=== PATIENT | female | born 1975 | race Caucasian/White ===

== ENCOUNTER 2024-02-01 17:53 | Emergency (ER) | payer OTHER, SELFPAY ==
[2024-02-01 17:59] VITALS: BP 173/101; PULSE 82; TEMP 37; O2SAT 96; BMI 28.8
[2024-02-01] MEDS: TETRACAINE HCL 0.5% OP SOL 80 DROP/4 ML BOTTLE OP (18:28)
[2024-02-01] MEDS: FLUORESCEIN SODIUM 1 MG STRIP OP (18:28)
[2024-02-01 18:42] VITALS: BP 148/96; PULSE 88; O2SAT 99
--- NOTE | 2024-02-01 18:48 | ED.GENADUL1 ---
HPI HPI - General Adult General Chief complaint: Eye Problems Stated complaint: Eye Redness/Pain Time Seen by Provider: 02/01/24 18:13 Source: patient Mode of arrival: walk-in Limitations: no limitations History of Present Illness HPI narrative: 49-year-old female to the emergency department chief complaint of redness in her left eye. She reports that she woke up with what appears to be some bleeding on her eye. No known injuries. She is not on any blood thinners. There is no vision changes. She reports that the eye feels veneer drier tailer than normal. Related Data Previous Rx's ?Medication ?Instructions ?Recorded erythromycin 5 mg/gram (0.5 %) eye 1 applic ophthalmic (eye) Q8H 5 02/01/24 ointment days #3.5 grams Allergies Allergy/AdvReac Type Severity Reaction Status Date / Time No Known Drug Allergies Allergy Verified 02/01/24 17:59 Opioid HPI Opioid Management Most Recent Opioid Data: Last Pain Scale 5 02/01/24 18:25 Review of Systems ROS Status of ROS 10 or more systems reviewed and unremarkable except as noted in history and below Exam Narrative Exam Narrative: VITALS: I have reviewed the triage vital signs. GENERAL: Well developed, well appearing adult in no acute distress. NEURO: Alert and oriented. Moves all extremities. Face is symmetric and expressive. EYES: PERRL. No scleral icterus. No discharge. Left-sided conjunctival hemorrhage, approximately 25% surface. HENT: Normocephalic, atraumatic. Hearing is grossly intact. Nares grossly patent and without discharge. Mucous membranes moist. NECK: No JVD. Patient moves neck without restriction. SKIN: Warm and dry. Normal turgor. No rash or lesions appreciated. PSYCH: Mood, affect, and interaction is appropriate to the setting. Constitutional Vital Signs, click to edit/add: Last Vital Signs Temp 98.6 F 02/01/24 17:59 Pulse 88 02/01/24 18:42 Resp 16 02/01/24 18:42 BP 148/96 H 02/01/24 18:42 Pulse Ox 99 02/01/24 18:42 O2 Del Method Room Air 02/01/24 17:59 Course Vital Signs Vital signs: Vital Signs Temperature 98.6 F 02/01/24 17:59 Pulse Rate 82 02/01/24 17:59 Respiratory Rate 18 02/01/24 17:59 Blood Pressure 173/101 H 02/01/24 17:59 Pulse Oximetry 96 02/01/24 17:59 Oxygen Delivery Method Room Air 02/01/24 17:59 Temperature 98.6 F 02/01/24 17:59 Pulse Rate 88 02/01/24 18:42 Respiratory Rate 16 02/01/24 18:42 Blood Pressure 148/96 H 02/01/24 18:42 Pulse Oximetry 99 02/01/24 18:42 Oxygen Delivery Method Room Air 02/01/24 17:59 Medical Decision Making MDM Narrative Medical decision making narrative: Some conjunctival hemorrhage. Fluorescein without any uptake. Normal visual acuity. She is appropriate for outpatient treatment. Ophthalmology referral. Erythromycin is given for eye lubrication. Patient agrees with this plan. Patient was discharged home. Discharge Plan Discharge Stand Alone Forms: Portal Instructions Chief Complaint: Eye Problems Clinical Impression: Subconjunctival hemorrhage Patient Disposition: Home, Self-Care Time of Disposition Decision: 18:31 Condition: Good Mode of Transportation: Private Vehicle Prescriptions / Home Meds: New erythromycin 5 mg/gram (0.5 %) ointment 1 applic ophthalmic (eye) Q8H 5 Days Qty: 3.5 0RF Print Language: Croatian Additional Instructions: Follow-up with your eye doctor in [place]. Return to the ED with vision changes or worsening. Referrals: Physician,Non-Staff, MD [Primary Care Provider] - 1 week Discharge Date/Time: 02/01/24 18:43
== END 2024-02-01 18:43 | disposition home or self-care (01) ==
PROVIDERS: Emergency Provider Student in an Organized Health Care Education/Training Program
DX: H11.32 Conjunctival hemorrhage, left eye (principal)
CPT/HCPCS: 99283